=== PATIENT | female | born 1965 | race Caucasian/White ===

== ENCOUNTER 2017-06-12 23:19 | Emergency (ER) | payer OTHER ==
[2017-06-12 23:45] LABS: BASOPHIL COUNT 0.1 K/uL (0-0.1); EOSINOPHIL (%) 3.2 % (0-5); EOSINOPHIL COUNT 0.5 K/uL (0-0.3); HEMATOCRIT 41.4 % (36.0-46.0); IMMATURE GRANULOCYTE (%) 0.9 % (0.0-0.7); IMMATURE GRANULOCYTE COUNT 0.1 K/uL; INSTRUMENT ABS NEUTROPHIL CT 10.5 K/uL; LYMPHOCYTE COUNT 2.7 K/uL (1.0-2.8); MCHC 32.9 G/DL (30.0-36.0); MCV 82.3 FL (83-99); MEAN PLAT.VOLUME 10.4 uM^3 (9.5-12.4); MONOCYTE (%) 6.7 % (3-12); NEUTROPHIL (%) 70.9 % (45-76); NEUTROPHIL COUNT 10.5 K/uL (1.8-6.4); PLATELET COUNT 286 K/uL (156-360); RBC DIS.WIDTH-CV 13.6 % (11.8-14.6); RBC DIS.WIDTH-SD 40.5 % (39-53); RED BLOOD COUNT 5.03 M/uL (3.80-5.20); WHITE BLOOD COUNT 14.8 K/uL (4.1-10.2)
[2017-06-12 23:54] LABS: AMYLASE 42 IU/L (1-118); CHLORIDE 103 mEq/L (99-109); POTASSIUM 3.3 mEq/L (3.7-5.4); SODIUM 140 mEq/L (136-147)
[2017-06-12 23:55] LABS: GLUCOSE 120 mg/dL (70-99)
[2017-06-12 23:57] LABS: ANION GAP 9 MEQ/L (2-14)
[2017-06-12 23:59] LABS: GFR ESTIMATE (CALCULATED) > 59 mL/min/; SERUM ETHYL ALCOHOL < 10 mg/dL
[2017-06-13] LABS: UREA NITROGEN (BUN) 10 mg/dL (9-23)
[2017-06-13 00:02] LABS: LIPASE 10 U/L (1.0-51.0)
[2017-06-13 00:08] LABS: QUANTITATIVE HCG < 4.0 MIU/ML
[2017-06-13] MEDS ORDERED: ULTRAM50 MG PO (01:06)
[2017-06-13] MEDS ORDERED: PERCOCET 5/31 TABLET PO (01:06)
== END 2017-06-13 02:51 | disposition home or self-care (01) ==
LOC: TRA 23:19
PROVIDERS: Emergency Medicine
PROC: 2W3RX1Z Immobilization of Left Lower Leg using Splint (ICD-10-PCS; principal; 2017-06-12)
DX: S82.52XA Displaced fracture of medial malleolus of left tibia, initial encounter for closed fracture (principal); S22.31XA Fracture of one rib, right side, initial encounter for closed fracture; V89.2XXA Person injured in unspecified motor-vehicle accident, traffic, initial encounter; Y92.410 Unspecified street and highway as the place of occurrence of the external cause; I10 Essential (primary) hypertension; E78.5 Hyperlipidemia, unspecified; J45.909 Unspecified asthma, uncomplicated; K21.9 Gastro-esophageal reflux disease without esophagitis; K58.9 Irritable bowel syndrome, unspecified; F32.9 Major depressive disorder, single episode, unspecified; Z86.711 Personal history of pulmonary embolism; Z79.01 Long term (current) use of anticoagulants; Z79.82 Long term (current) use of aspirin; Z98.84 Bariatric surgery status
CPT/HCPCS: 70450; 71260; 72125; 72129; 72132; 73552; 73560; 73600; 74177; 80048; 81003; 82150; 83690; 84702; 85025; 86900; 86901; 99281; 99285; G0480; J2405; J3010